=== PATIENT | male | born 1985 | race Caucasian/White ===

== ENCOUNTER 2022-01-08 11:19 | Day surgery (SDC) | payer BC, OTHER ==
[2022-01-07 12:57] VITALS: BMI 42.3
[~2022-01-08 11:19] MED LIST: DEXAMETHASONE SOD PHOSPHATE 4 MG/ML 1 ML VIAL IV ONE; HYDROmorphone 0.5 MG/0.5 ML SYRINGE IVP PRN; LACTATED RINGERS 1,000 ML IV SCH; ONDANSETRON 4 MG/2 ML VIAL IVP ONE; ceFAZolin 3 GM in SODIUM CHLORIDE 0.9% 100 ML IVPB PRN
[2022-01-08] MEDS ORDERED: MIDAZOLAM 2 MG/2 ML VIAL IVP ONE (12:32)
[2022-01-08 12:33] LABS: Basophils # (A) 0.1 k/uL (0-0.2); Basophils % (A) 1 %; Eosinophils # (A) 0.2 k/uL (0-0.7); Eosinophils % (A) 3 %; HCT 46.2 % (39.0-53.0); HGB 14.7 gm/dL (13.0-17.5); Lymphocytes # (A) 1.8 k/uL (1.0-4.8); Lymphocytes % (A) 23 %; MCH 25.9 pg (25.0-35.0); MCHC 31.7 g/dL (31.0-37.0); MCV 81.5 fL (80.0-100.0); Mean Platelet Volume 8.1; Monocytes # (A) 0.4 k/uL (0-1.0); Monocytes % (A) 5 %; Neutrophils # (A) 5.2 k/uL (1.3-7.7); Neutrophils % (A) 68 %; Platelet Count 235 k/uL (150-450); RBC 5.66 m/uL (4.30-5.90); RDW 14.1 % (11.5-15.5); WBC 7.7 k/uL (3.8-10.6)
--- NOTE | 2022-01-08 13:23 | P.ANPRN ---
Procedure Note - Anesthesia - Nerve Block Performed Left Adductor Canal Single Time Out Performed: Yes (1231) Date of Procedure: 01/08/22 Procedure Start Time: 12:31 Procedure Stop Time: 12:39 Location of Patient: PreOp Indication: Acute Post-Operative Pain, Dx/Pain Location (Left ankle), Requested by Surgeon Specifically requested for management of pain by DrNayely: Artem Weston Sedation Type: Sedate with meaningful contact maintained Preparation: Sterile Prep Position: Supine Catheter: None Needle Types: Pajunk Needle Gauge: 21 (100 mm) Ultrasound used to visualize needle placement: Yes Ultrasound used to observe medication spread: Yes Injectate: 0.5% Ropivacaine (see comment for volume) (20 cc + 2mg of decadron) Blood Aspirated: No Pain Paresthesia on Injection Noted: No Resistance on Injection: Normal Image Stored and Saved: Yes Events: Uneventful and Well Tolerated Left Popliteal Single Time Out Performed: Yes (1259) Date of Procedure: 01/08/22 Procedure Start Time: 12:40 Procedure Stop Time: 12:50 Location of Patient: PreOp Indication: Acute Post-Operative Pain, Dx/Pain Location (Left ankle), Requested by Surgeon Specifically requested for management of pain by Dr.: Artem Weston Sedation Type: Sedate with meaningful contact maintained Preparation: Sterile Prep Position: Right Lateral Catheter: None Needle Types: Pajunk Needle Gauge: 21 (100 mm) Ultrasound used to visualize needle placement: Yes Ultrasound used to observe medication spread: Yes Injectate: 0.5% Ropivacaine (see comment for volume) (20 cc + decadron 2 mg) Blood Aspirated: No Pain Paresthesia on Injection Noted: No Resistance on Injection: Normal Image Stored and Saved: Yes Events: Uneventful and Well Tolerated
[2022-01-08] MEDS ORDERED: LIDOCAINE 2% INJ 20 MG/ML (2 ML VIAL) ONE (13:31)
[2022-01-08] MEDS ORDERED: ROPIVACAINE 5 MG/ML 30 ML VIAL ONE (13:31)
[2022-01-08] MEDS ORDERED: DEXAMETHASONE SOD PHOSPHATE 4 MG/ML 1 ML VIAL ONE (13:31)
[2022-01-08] MEDS ORDERED: MIDAZOLAM 2 MG/2 ML VIAL ONE (13:31)
[2022-01-08] MEDS ORDERED: fentaNYL (PF) 50 MCG/ML 2 ML AMP ONE (13:31)
[2022-01-08] MEDS ORDERED: PROPOFOL 10 MG/ML 20 ML VIAL IV ONE (13:31)
[2022-01-08] MEDS ORDERED: LACTATED RINGERS 1,000 ML IV ONE (14:25)
[2022-01-08 14:49] VITALS: TEMP 98.2
[2022-01-08 16:11] VITALS: BP 124/84; PULSE 91; RESP 16
--- NOTE | 2022-01-11 14:36 | OP ---
OPERATIVE REPORT PREOPERATIVE DIAGNOSIS: Displaced fifth metatarsal fracture with delayed healing, left foot. POSTOPERATIVE DIAGNOSIS: Displaced fifth metatarsal fracture with delayed healing, left foot. PROCEDURE PERFORMED: Open reduction with internal fixation of left fifth metatarsal fracture. ANESTHESIA: General with preoperative nerve block. HEMOSTASIS: Left calf tourniquet at 250 mmHg. ESTIMATED BLOOD LOSS: Minimal. MATERIALS: One 4.5 mm [employer] Conner screw, 2.5 mL of [employer] augment. SPECIMENS: None. COMPLICATIONS: None. DESCRIPTION OF PROCEDURE: Prior to the patient being brought to the operating room, Anesthesia administered nerve block in the left lower extremity. The patient was then brought into the operating room, placed on the table in supine position. Time-out was taken to confirm correct patient, identifiers, correct laterality of surgery, and correct procedure. When all staff in the room were in agreement with the time-out, the patient was placed under general anesthesia. A tourniquet was placed in the left calf and a bump underneath the left hip to internally rotate the left leg. The left foot was then prepped and draped in usual manner. Foot was exsanguinated and the tourniquet was inflated to 250 mmHg. Attention was directed over the fifth metatarsal, where fluoroscopy was used to manish the area and location of fracture. Once done, a small stab incision was made through the skin and bluntly dissected down to the bone. Then, a 2 mm low-speed krishna was placed through the tissue at the fracture site, and then the krishna was used and advanced dorsally and plantarly to resect the soft tissue bridge down to healthy bone. Once that was completed, the wound was irrigated thoroughly with antibiotic saline, and then attention was turned to the lateral side of the foot, where an incision was made 1.5 to 2 cm proximal to the fifth metatarsal base. The incision was made and bluntly dissected through the subcutaneous layer. A guidewire for the instrumentation for a [employer] Conner screw was then placed at the tip of the fifth metatarsal styloid process and advanced into the medullary canal. Fluoroscopy was used to check the trajectory of the wire, both in AP, lateral, and oblique views. Once the trajectory was satisfactory, it was advanced to the fracture line, and then fluoroscopy was again used to check the alignment, and once confirmed, the wire was advanced under oscillating power into the medullary canal of the fifth metatarsal. The drill was then placed over the wire and then advanced to the fracture line. The drill bit was then oscillated past the fracture site into the fifth metatarsal shaft. The drill was removed and the wire left in place. The hole was tapped with a 4.5 mm tap, which appeared to be the appropriate diameter. The tap and wire were removed and then the wound was irrigated thoroughly with sterile saline with antibiotic. Then, [employer] augment was injected into the medullary canal from the proximal drill hole to fill the space in the area of the fracture. Some of the material did extrude out the small incision that was used to minimally resect soft tissue bridge. Therefore, it was in the correct area. The syringe was withdrawn, and then a 4.5 mm [employer] Conner screw was inserted and was advanced until the head engaged the fifth metatarsal and the threads were distal to the fracture line, which allowed to compress and then the screw was rotated until the bevel was medial over the cuboid. Fluoroscopy was used to check position of the screw, both AP and lateral views and was found to be within the medullary canal. There was good reduction of the fracture. All wounds were thoroughly irrigated and the skin closed with 3-0 nylon. A dry sterile dressing was applied to the left foot. The tourniquet was released. Cap refill returned to all digits on the left foot. The patient was then placed in a well-padded, well-molded plaster posterior mold/sugar-tong splint. Ankle held in neutral position until it dried. Then, the anesthesia was reversed, and the patient was taken to Recovery with vital signs stable. MMTJ / CAROLN: [id number] / [id number]
== END 2022-01-08 14:25 | disposition home or self-care (01) ==
LOC: OR 11:19
PROVIDERS: ATTEND Podiatrist
DX: S92.352G Displaced fracture of fifth metatarsal bone, left foot, subsequent encounter for fracture with delayed healing (principal); G89.18 Other acute postprocedural pain; M79.672 Pain in left foot; F17.210 Nicotine dependence, cigarettes, uncomplicated; Z83.3 Family history of diabetes mellitus; Z82.49 Family history of ischemic heart disease and other diseases of the circulatory system; Z86.59 Personal history of other mental and behavioral disorders; W22.8XXD Striking against or struck by other objects, subsequent encounter
CPT/HCPCS: 28485; 64447; 64445; 76942; 85025; C1713 ×2; J2250; J1100; J0690; J2405; J3010; J2795; J2704; J2001